=== PATIENT | male | born 1955 | race Caucasian/White ===

== ENCOUNTER → 2021-06-17 11:35 | Outpatient (CLI) | payer MEDICARE, MEDICAID, SELFPAY ==
--- NOTE | 2021-06-17 | DI.MRI.S_ITS ---
PROCEDURE: MR LUMBAR SPINE WO CON INDICATIONS: Spondylolisthesis, lumbar region TECHNIQUE: Noncontrast sagittal T1 spin echo and T2 fast echo, sagittal STIR, and T2 fast spin echo through the lumbar spine. In cases with scoliosis, additional coronal T2 fast spin echo may be performed. COMPARISON: None. FINDINGS: Image quality: Excellent. Alignment and Curvature: Transitional of the me is present with lumbarization of the 1st sacral vertebral body. For purposes of this exam, vertebral bodies are numbered. Prior to any surgical intervention, full x-ray spine series is recommended for further assessment. There is 4 mm anterolisthesis of L5 on S1, 1-2 mm retrolisthesis is present of L3 on L4, L4 on L5. Bone Marrow: Marrow is of normal overall signal. Moderate reactive endplate changes are present at L5-S1, minimal L4-5. No acute vertebral body compression fractures. Spinal Cord: Conus medullaris terminates at the L2 level. Visualized cord demonstrates normal signal and size. Paraspinous Soft Tissues: No paravertebral masses. Discs: Multilevel moderate to severe disc desiccation is present most prominent at L5-S1. T12-L1: No disc bulge, spinal stenosis or foraminal narrowing. L1-L2: Minimal disc bulge without spinal stenosis or foraminal narrowing. Mild ligamentum flavum hypertrophy. L2-L3: Mild disc bulge with minimal spinal stenosis. Moderate bilateral foraminal narrowing with facet and ligamentum flavum hypertrophy. L3-L4: Motion is present at this level. Disc bulges present with moderate spinal stenosis. Moderate to severe left and moderate right foraminal narrowing with facet and ligamentum flavum hypertrophy. L4-L5: Mild disc bulge with moderate spinal stenosis. Moderate to severe left and moderate right foraminal narrowing with facet and ligamentum flavum hypertrophy. L5-S1: Motion is present at this level. Disc bulge with superimposed protrusion and you appearance of extrusion extending caudal caudal to the disc space. There is severe spinal stenosis and canal flattening. Severe right foraminal narrowing with nerve root contraction, mild right foraminal narrowing. Significant facet and ligamentum flavum hypertrophy are present. IMPRESSION: Multilevel degenerative changes. Appearance of disc bulge with superimposed protrusion and extrusion is noted at L5-S1. Multilevel spinal stenosis most prominent from L3-4 through L5-S1 secondary to disc bulges/protrusions, with secondary affective facet/ligamentum flavum arthropathy. Multilevel foraminal narrowing most severe at L5-S1 secondary to anterolisthesis as well as facet arthropathy. Dictated by: Danielle Frazier M.D. on 06/17/2021 at 14:45 Approved by: Danielle Frazier M.D. on 06/17/2021 at 14:59
== END ==
PROVIDERS: Referring Provider Neurological Surgery; Visit Provider Neurological Surgery
DX: M51.27 Other intervertebral disc displacement, lumbosacral region (principal); M47.816 Spondylosis without myelopathy or radiculopathy, lumbar region; M47.817 Spondylosis without myelopathy or radiculopathy, lumbosacral region; M48.061 Spinal stenosis, lumbar region without neurogenic claudication; M48.07 Spinal stenosis, lumbosacral region; M43.17 Spondylolisthesis, lumbosacral region
CPT/HCPCS: 72148

== ENCOUNTER → 2021-06-30 09:40 | Outpatient (CLI) | payer MEDICARE, MEDICAID, SELFPAY ==
--- NOTE | 2021-06-30 | DI.US.S_ITS ---
PROCEDURE: US PERIPH VENOUS LOW EXTREM LT INDICATIONS: PAIN, EDEMA TECHNIQUE: Real-time imaging, as well as color and pulse Doppler interrogation, were performed of the lower extremity deep veins from the inguinal ligament to the popliteal fossa. COMPARISON: None. FINDINGS: The common femoral, femoral and popliteal veins are normally compressible, and free of intraluminal thrombus. Color and pulse Doppler demonstrate normal phasic intraluminal flow. There is normal augmentation response to distal compression maneuver. IMPRESSION: No evidence of deep vein thrombosis involving the left lower extremity. Dictated by: Connie Miller MD, PhD on 06/30/2021 at 11:47 Approved by: Connie Miller MD, PhD on 06/30/2021 at 11:47
== END ==
PROVIDERS: PCP Family Medicine; Referring Provider Neurological Surgery; Visit Provider Neurological Surgery
DX: M79.662 Pain in left lower leg; R60.0 Localized edema
CPT/HCPCS: 93971

== ENCOUNTER → 2022-02-06 08:31 | Outpatient (CLI) | payer MEDICARE, MEDICAID, SELFPAY ==
--- NOTE | 2022-02-06 08:32 | DI.CT.S_ITS ---
PROCEDURE: CT THORACIC SPINE WO CON INDICATIONS: Postlaminectomy syndrome, not elsewhere classified TECHNIQUE: Noncontrast 0.8 mm thick sections acquired through the region of interest in the thoracic spine. Sagittal and coronal reformats were then constructed. For radiation dose reduction, the following was used: automated exposure control. COMPARISON: [facility], CT, CT LUMBAR SPINE WO CON, 02/06/2022, 8:41. FINDINGS: Image quality: This examination is limited by involuntary motion artifact. Bones: No acute vertebral body compression fractures. No suspicious sclerotic or lytic bony lesions. Central spinal canal is of normal overall caliber. Transitional anatomy is noted, with only 11 pairs of ribs. The 11th pair of ribs is vestigial, which is best seen on series 5 images 38 through 41. Numerous levels of bridging anterior osteophytes can be seen anteriorly and on the right. Mild dextroconvex scoliotic curvature is seen. There is moderate disc space narrowing seen at the T2-T3 level. Minimal anterolisthesis is seen at this level. Endplate irregularity and sclerosis can be seen. Vacuum disc phenomenon is seen at this level. Moderate bilateral neural foraminal narrowing is seen. Mild central canal narrowing is seen. At T8-T9, there is moderate bilateral neural foraminal narrowing seen. No significant central canal narrowing is seen. At T9-T10, there is mild disc bulge seen, with moderate bilateral neural foraminal narrowing and mild central canal narrowing. Milder degenerative changes are seen elsewhere. (Please see the accompanying lumbar spine CT report for description of the visualized lumbar spine.) Soft tissues: No paravertebral masses or hematomas. Visualized posteromedial lungs appear clear. [id number] coronary artery calcification can be seen. IMPRESSION: Several levels of thoracic spine degenerative change are seen, including moderate disc space narrowing at T2-T3. Mild dextroconvex scoliotic curvature is seen. Additional findings: Transitional anatomy, with only 11 pairs of ribs. The 11th pair of ribs is vestigial. Kjtu-[id number] coronary artery calcification Dictated by: Héctor Raman M.D. on 02/06/2022 at 8:50 Approved by: Héctor Raman M.D. on 02/06/2022 at 8:55
--- NOTE | 2022-02-06 08:32 | DI.CT.S_ITS ---
PROCEDURE: CT LUMBAR SPINE WO CON INDICATIONS: Postlaminectomy syndrome, not elsewhere classified TECHNIQUE: Noncontrast 0.8 mm thick sections acquired from the T12 level to the sacrum. Sagittal and coronal reformats were constructed. For radiation dose reduction, the following was used: automated exposure control. COMPARISON: [facility], CT, CT THORACIC SPINE WO CON, 02/06/2022, 8:41. [facility], MR, MR LUMBAR SPINE WO CON, 06/17/2021, 11:43. FINDINGS: Image quality: There is artifact associated with the metallic hardware. Bones: There is normal bony alignment. No acute vertebral body compression fractures. No suspicious lytic or blastic bony lesions. No pars defects. Bilateral pedicle screws can be seen at the L2, L3, L4, L5, and S1 levels. Additional iliac wing screws are seen. Vertical fixation rods are seen. There is a disc spacer seen at the L4-L5 level. Sacroiliac joint fixation devices are also seen. The right-sided screw at the L2 level is superiorly angulated, with prominent lucency seen surrounding it, as on series 12, image 38. The other screws appear well placed. Mild lucency can be seen adjacent to both L3 screws. No additional findings of hardware failure or hardware loosening are seen. There has been removal of portions of the posterior elements. Bone grafting material is noted. T12-L1: Bridging anterior osteophytes are seen on the right, as on series 10, image 28 and on series 13, image 40. The disc height is relatively well preserved. Mild generalized disc bulge is seen. No significant neural foraminal or central canal narrowing can be seen. L1-L2: Mild loss of disc height is seen. Moderate disc bulge is seen, which is eccentric to the left. Bridging endplate osteophytes are seen on both sides, which are more prominent on the left than on the right. Moderate bilateral neural foraminal narrowing is seen. Mild central canal narrowing is seen. L2-L3: Mild loss of disc height is seen. Vacuum disc phenomenon is seen at this level. Moderate disc bulge is seen, which is eccentric to the left. Bridging endplate osteophytes are seen on both sides, left worse than right. Moderate bilateral neural foraminal narrowing is seen. Mild central canal narrowing is seen. The degree of central canal narrowing appears improved compared to the prior. L3-L4: The disc height is well preserved. Vacuum disc phenomenon is seen at this level. Moderate generalized disc bulge is seen. There is moderate right-sided and mild left-sided neural foraminal narrowing. No central canal narrowing is seen. The degree of central canal narrowing is clearly improved compared to the prior MRI. L4-L5: Moderate generalized disc bulge is seen. Moderate facet joint hypertrophy is seen. Moderate bilateral neural foraminal narrowing is seen. No central canal narrowing is seen. This level is clearly improved compared to the preoperative MRI. L5-S1: Mild loss of disc height is seen. Mild generalized disc bulge is seen. No significant neural foraminal narrowing is seen. No central canal narrowing is seen. The degree of central canal narrowing is clearly improved compared to the prior. Bilateral hip arthroplasty hardware can be seen. Soft tissues: No retroperitoneal masses or hematomas. Visualized aorta is normal in caliber. Atherosclerotic calcification is noted. Fat containing bilateral inguinal hernias are seen, left larger than right. IMPRESSION: Extensive fixation hardware can be seen. There is lucency seen adjacent to the right L2 screw and (more mildly) adjacent to both L3 screws. Multiple levels of degenerative change are seen, which are overall improved compared to the preoperative MRI. Additional findings: Bilateral fat containing inguinal hernias Bilateral hip arthroplasty hardware Dictated by: Héctor Raman M.D. on 02/06/2022 at 8:40 Approved by: Héctor Raman M.D. on 02/06/2022 at 8:49
== END ==
PROVIDERS: PCP Family Medicine; Referring Provider Neurological Surgery; Visit Provider Neurological Surgery
DX: M96.1 Postlaminectomy syndrome, not elsewhere classified (principal); M47.816 Spondylosis without myelopathy or radiculopathy, lumbar region; M47.814 Spondylosis without myelopathy or radiculopathy, thoracic region; M48.04 Spinal stenosis, thoracic region; M41.9 Scoliosis, unspecified; K40.20 Bilateral inguinal hernia, without obstruction or gangrene, not specified as recurrent; I25.10 Atherosclerotic heart disease of native coronary artery without angina pectoris; Z96.643 Presence of artificial hip joint, bilateral
CPT/HCPCS: 72128; 72131